=== PATIENT | female | born 1955 | race Caucasian/White ===

== ENCOUNTER 2016-10-17 07:37 | Emergency (ER) | payer OTHER | END 2016-10-17 10:50 | disposition home or self-care (01) | LOC: ER1 07:37 | DX: J02.9 Acute pharyngitis, unspecified (principal); J40 Bronchitis, not specified as acute or chronic; I10 Essential (primary) hypertension; Z88.1 Allergy status to other antibiotic agents; Z79.82 Long term (current) use of aspirin | CPT/HCPCS: 71020; 87081; 87880; 94664; 96372; 99283; J2930 ==

== ENCOUNTER 2017-04-10 12:06 | Emergency (ER) | payer OTHER | END 2017-04-10 14:45 | disposition home or self-care (01) | LOC: ER1 12:06 | DX: J40 Bronchitis, not specified as acute or chronic (principal); J06.9 Acute upper respiratory infection, unspecified; Z88.1 Allergy status to other antibiotic agents | CPT/HCPCS: 71020; 87081; 87880; 99283 ==

== ENCOUNTER 2020-11-04 22:34 | Emergency (ER) | payer MEDICARE, OTHER ==
[~2020-11-04 22:34] MED LIST: OMNICEF 300 MG300 MG PO; ZITHROMAX250 MG PO
== END 2020-11-05 03:26 | disposition home or self-care (01) ==
LOC: ER1 22:34
DX: S52.124A Nondisplaced fracture of head of right radius, initial encounter for closed fracture (principal); S50.11XA Contusion of right forearm, initial encounter; I10 Essential (primary) hypertension; W01.0XXA Fall on same level from slipping, tripping and stumbling without subsequent striking against object, initial encounter; Y92.009 Unspecified place in unspecified non-institutional (private) residence as the place of occurrence of the external cause
CPT/HCPCS: 72125; 73060; 73080; 73090; 99284

== ENCOUNTER 2021-08-22 19:39 | Emergency (ER) | payer MEDICARE, OTHER, MEDICAID | END 2021-08-22 19:42 | disposition E | LOC: ER1 19:39 | DX: I46.9 Cardiac arrest, cause unspecified (principal); I10 Essential (primary) hypertension | CPT/HCPCS: 99285; J0171 ==